=== PATIENT | male | born 1970 | race Caucasian/White ===

== ENCOUNTER 2020-11-11 14:59 | Outpatient (CLI) | payer OTHER, SELFPAY | END 2020-11-11 15:00 | disposition home or self-care (01) | LOC: ANHCOVIDVC 14:59 | PROVIDERS: PCP Family Medicine; Visit Provider Family Medicine | DX: Z23 Encounter for immunization (principal) | CPT/HCPCS: 0001A; 91300 ==

== ENCOUNTER 2020-12-02 14:59 | Outpatient (CLI) | payer OTHER, SELFPAY | END 2020-12-02 15:00 | disposition home or self-care (01) | LOC: ANHCOVIDVC 14:59 | PROVIDERS: PCP Family Medicine; Visit Provider Family Medicine | DX: Z23 Encounter for immunization (principal) | CPT/HCPCS: 0002A; 91300 ==

== ENCOUNTER 2022-12-01 15:22 | Outpatient (CLI) | payer OTHER, SELFPAY ==
--- NOTE | 2022-12-01 15:30 | ECG_ITS ---
Measurements Intervals [place] Rate: 66 P: 28 IA: 178 QRS: -15 QRSD: 118 T: 28 QT: 386 QTc: 407 Interpretive Statements SINUS RHYTHM INTRAVENTRICULAR CONDUCTION DELAY DELAYED PRECORDIAL R/S TRANSITION BASELINE ARTIFACT- I, II, III, AVL, AVF BORDERLINE ECG NO PREVIOUS ECG AVAILABLE FOR COMPARISON Electronically Signed On 12-01-2022 15:46:11 CDT by Prakash Dumont D.O.
[2022-12-01 16:07] LABS: Anion Gap 7 mmol/L (8-16); Blood Urea Nitrogen 17 mg/dL (9-20); Calcium 9.5 mg/dL (8.4-10.2); Carbon Dioxide 34 mmol/L (22-30); Chloride 97 mmol/L (98-107); Estimated Glomerular Filt Rate > 60; Glucose 109 mg/dL (65-110); Potassium 3.9 mmol/L (3.4-5.0); Sodium 138 mmol/L (137-145)
== END 2022-12-01 15:23 | disposition home or self-care (01) ==
LOC: ANHSURGERY 15:26
PROVIDERS: Anesthesiology; PCP Family Medicine; Visit Provider Otolaryngology
DX: Z79.899 Other long term (current) drug therapy (principal); I10 Essential (primary) hypertension; Z01.818 Encounter for other preprocedural examination; I45.9 Conduction disorder, unspecified
CPT/HCPCS: 36415; 80048; 93005

== ENCOUNTER 2022-12-04 01:24 | Day surgery (SDC) | payer OTHER, SELFPAY ==
[2022-11-27 12:09] VITALS: BMI 31.1
--- NOTE | 2022-11-27 12:12 | PC.NURSE ---
Report to the Outpatient Waiting Room, entrance under the green pavilion located off [facility], at time 6:15 on date 12/04/22. Planned Procedure Time: 8:15. Time changes happen often and if your time is changed the preop area will call you the afternoon before. - You and your visitor will be asked to self-screen and do not enter if you have any COVID symptoms. - Only one visitor is requested with a max of two and NO children visitors are allowed at this time. - The patient visitor may be requested to leave or wait in car when not with patient due to distancing restrictions. - A mask is optional within the hospital at this time. Patients may have clear liquids (water, carbonated beverages, clear teas, apple juice) until 3 hours prior to surgery (5:15) with a maximum of 20 ounces. - No food from midnight until time of surgery Take the following medications with a SIP of water the morning of surgery: NONE DO NOT STOP ANY OF YOUR OTHER PRESCRIPTION MEDICATIONS PRIOR TO SURGERY EXCEPT THE FOLLOWING Medications to discontinue per physician: N/A Date to take last dose: N/A Please no make-up, nail afghan, hairspray, perfume, deodorant, or body powder the day of surgery. No jewelry (including any body piercings) or valuables the day of surgery, leave them at home. Please take a shower or bath the night before, or the morning of, surgery with an antibacterial soap. Wear comfortable, loose fitting clothing. - Jewelry must be removed prior to entering the operating room. Rings and piercings that are not removed may be cut off. - The hospital will not accept responsibility for valuables. - Please leave all valuables, including medications, at home the day of surgery. If you are going home after surgery, a licensed [employer] tank driver must drive you home. - NO public transportation without another adult if you receive anesthesia. - We recommend that an adult stay with you for 24 hours following discharge. - We also recommend that you do not drive, make important decision, drink alcoholic beverages, or take any drugs that were not prescribed by your health care provider for at least 24 hours after your discharge time. Follow any additional instructions given to you from your surgeon. If you or anyone in your household have experienced Covid symptoms in the past week, please notify your surgeon or the nurse liaison at the phone number below for possible testing. Telephone instructions given to PT - ABELINO KAISER and asked if any additional questions and then verbalized understanding. Patient advised to call surgeon office or pre surgery nurse liaison [phone] if any additional questions.
--- NOTE | 2022-12-03 08:51 | P.HP_ITS ---
H&P: HPI History of Present Illness Date/Time: 12/03/22 08:51 Chief Complaint: Left postauricular mass Narrative: planned surgical procedure Review of Systems 2 Review of Systems: All systems reviewed & are unremarkable except as noted in HPI and below [facility] Surgical History Surgical History H/O colonoscopy (~09/2018) H/O vasectomy Family History Family History Sibling Hypertension Patient's sister is in good health Patient's brother is in good health Father Hypertension Family history of elevated blood lipids Mother Family history of malignant neoplasm of ovary, Onset Age: 54 Social History Social History Social History: exercise mild Smoking status: Never smoker Alcohol intake: current Drinks per week: 5 Alcohol use details: socially Substance use: never Substance use type: does not use Lack of Transportation: No Lack of Food: Never True Current Housing: I Have Housing Concerned About Future Housing: No Difficulty Paying Gas/Electric Bills: No Difficulty Paying for Meds: No Currently Unemployed: No Education: Bachelor's Degree Difficulty w/ Childcare or Family Care: No Living arrangements: with family Gender identity (if verbalized by the patient): Male Spiritual care concerns: No Meds Home Medications and Allergies Home Medications Medication Instructions Recorded Confirmed Type atorvastatin 20 mg tablet See Rx Instructions .Route 02/17/22 11/27/22 Rx .COMPLEX #90 tabs lisinopril 20 See Rx Instructions .Route 06/18/22 11/27/22 Rx mg-hydrochlorothiazide 12.5 mg .COMPLEX #180 tabs tablet sildenafil (pulm.hypertension) 20 20 mg PO DAILY PRN sexual activity 08/19/22 11/27/22 Rx mg tablet #30 tabs Allergies Allergy/AdvReac Type Severity Reaction Status Date / Time No Known Allergies Allergy Verified 11/27/22 12:08 Exam Narrative: left postauricular mass Assessment and Plan Assessment and plan (1) Mass of postauricular area: Code(s): R22.0 - Localized swelling, mass and lump, head Status: Acute Assessment and Plan: plan excision left postauricular mass. LMA okjerman. Risks discussed including bleeding infection recurrence of mass need for further procedures need for drainage of any postoperative complications numbness in the area pain need to keep it dry for several weeks postoperative infection scar need to shave hair.
--- NOTE | 2022-12-03 09:42 | WPDANESEPPF ---
Anes - Initial Pre Proc Eval Procedure: Operation Date: 12/04/22 09:30 Proposed Procedures p Excision Left Postauricular Mass - Ollie Dacosta MD <Dami Bales MD - Last Filed: 12/07/22 06:49> Date/Time: 12/03/22 09:42 <Dami Bales MD - Last Filed: 12/07/22 06:49> Surgeon: Ollie Dacosta MD <Dami Bales MD - Last Filed: 12/07/22 06:49> Pre Op Diagnosis: Lt Post Auricular Mass <Dami Bales MD - Last Filed: 12/07/22 06:49> Patient Data Age: 52 Gender: M Height: 1.83 m Weight: 104.35 kg <Dami Bales MD - Last Filed: 12/07/22 06:49> Allergies Allergy/AdvReac Type Severity Reaction Status Date / Time No Known Allergies Allergy Verified 12/04/22 07:56 <Dami Bales MD - Last Filed: 12/07/22 06:49> Home Medications Medication Instructions Recorded Confirmed Type atorvastatin 20 mg tablet See Rx Instructions .Route 02/17/22 11/27/22 Rx .COMPLEX #90 tabs lisinopril 20 See Rx Instructions .Route 06/18/22 11/27/22 Rx mg-hydrochlorothiazide 12.5 mg .COMPLEX #180 tabs tablet sildenafil (pulm.hypertension) 20 20 mg PO DAILY PRN sexual activity 08/19/22 11/27/22 Rx mg tablet #30 tabs oxycodone 5 mg tablet 5 mg PO Q12H PRN pain #10 tabs 12/04/22 Rx <Dami Bales MD - Last Filed: 12/07/22 06:49> Patient hx anesthesia problems: none <Carlos Apple MD - Last Filed: 12/04/22 08:40> Family hx anesthesia problems: none <Carlos Apple MD - Last Filed: 12/04/22 08:40> Results Review: All pre-operative results and documents have been reviewed as part of the pre-operative evaluation. <Dami Bales MD - Last Filed: 12/07/22 06:49> PMFSH Past Medical History Medical History: Medical History (Updated 12/04/22 @ 10:59 by Ollie Dacosta MD) Erectile dysfunction Essential (primary) hypertension Mass of postauricular area Mixed hyperlipidemia Obesity <Dami Bales MD - Last Filed: 12/07/22 06:49> Surgical History Surgical History: Surgical History H/O colonoscopy (~09/2018) H/O vasectomy <Dami Bales MD - Last Filed: 12/07/22 06:49> Family History Family History: Family History Sibling Hypertension Patient's sister is in good health Patient's brother is in good health Father Hypertension Family history of elevated blood lipids Mother Family history of malignant neoplasm of ovary, Onset Age: 54 <Dami Bales MD - Last Filed: 12/07/22 06:49> Social History Social History: Social History Social History: exercise mild Smoking status: Never smoker Alcohol intake: current Drinks per week: 5 Alcohol use details: socially Substance use: never Substance use type: does not use Lack of Transportation: No Lack of Food: Never True Current Housing: I Have Housing Concerned About Future Housing: No Difficulty Paying Gas/Electric Bills: No Difficulty Paying for Meds: No Currently Unemployed: No Education: Bachelor's Degree Difficulty w/ Childcare or Family Care: No Living arrangements: with family Gender identity (if verbalized by the patient): Male Spiritual care concerns: No <Dami Bales MD - Last Filed: 12/07/22 06:49> Anes - Eval Final PreProcedure Day of Procedure 12/03/22 09:42 <Dami Bales MD - Last Filed: 12/07/22 06:49> Patient weight: obese <Dami Bales MD - Last Filed: 12/07/22 06:49> Heart: regular rate and rhythm <Dami Bales MD - Last Filed: 12/07/22 06:49> Lungs: clear to auscultation and normal air movement <Dami Bales MD - Last Filed: 12/07/22 06:49> Airway: Mallampati scale class II <Dami Bales MD - Last Filed: 12/07/22 06:49> Neurologica
--- NOTE | 2022-12-04 07:10 | WPDHPUPDATE1 ---
History and Physical Update Update Date/Time: 12/04/22 07:10 History and Physical has been reviewed, including an updated exam of the patient. There are NO changes in the patient's condition. Risks, benefits, and alternatives have been discussed and questions answered. Patient agrees to proceed with procedure.
[2022-12-04 08:04] VITALS: BP 142/85; PULSE 75; RESP 16; TEMP 36.7; O2SAT 100
[2022-12-04] MEDS: LACTATED RINGERS 1,000 ML 30 ML IV CONT ×2 (08:18→10:51)
[2022-12-04] MEDS: ceFAZolin 2 GM/D5W 50 ML 2 GM/50 ML BAG IVPB (09:30)
[2022-12-04] MEDS: LIDO 1%/EPINEPHRINE 1:100,000 50 ML VIAL 20 ML INFILTRATE (09:50)
[2022-12-04 10:55] VITALS: BP 135/83; PULSE 90; RESP 16; TEMP 36.6; O2SAT 100
[2022-12-04 11:10] VITALS: BP 124/79; PULSE 83; RESP 15; O2SAT 100
[2022-12-04 11:25] VITALS: BP 120/73; PULSE 84; RESP 14; O2SAT 96
[2022-12-04 11:42] VITALS: BP 131/70; PULSE 73; RESP 14
[2022-12-04 12:10] VITALS: BP 122/71; PULSE 78; RESP 14
--- NOTE | 2022-12-04 14:12 | W.PM.PROC2 ---
Procedure Note - Detailed Date of Procedure 12/04/22 Pre-op Diagnosis Lt Post Auricular Mass Post-op Diagnosis Same Procedure Performed Excision of left postauricular mass appeared to be lipoma. Was about 5 x 3 cm Surgeon Ollie Dacosta MD Anesthesia General Indications see above Findings about 5 x 3 cm Description of Procedure patient identified consent verified. Patient brought operating. Time-out performed. General anesthesia induced LMA secured. Patient prepped draped position 2nd time-out performed procedure confirmed. 1 cc 1% lidocaine 1 100,000 parts epinephrine injected over the left postauricular cyst. About a 3 cm incision that 3.5 cm incision made ellipsing some soft tissue out as this was a large subcutaneous mass. Fit this sharp scissors utilized to dissect around the mass any bleeding was controlled with bipolar electrocautery. Lipoma was removed about 5 x 3 cm. There was a small arterial bleeder which was bipolar. The procedure no further bleeding was noted. The wound was washed out with 500 mL of sterile normal saline. The deep layer was closed with 3 3-0 Vicryl interrupted sutures. Dermal layer 4-0 interrupted Vicryl suture. Skin glue applied. Pressure dressing applied. Patient tolerated the procedure well. No complications. I performed all dictated portions. Blood loss about 10 cc. Care the patient given Anesthesiology. Patient taken to PACU. Estimated Blood Loss 10 Drains No Packing No Pathology Yes Complications No immediate complications Condition Stable Disposition PACU [facility] Billing Surgery - Charge Forward: Surgery Billing
== END 2022-12-04 12:25 | disposition home or self-care (01) ==
PROVIDERS: PCP Family Medicine; Visit Provider Otolaryngology
PROC: (CPT 21012; principal; 2022-12-04 09:30)
DX: D17.0 Benign lipomatous neoplasm of skin and subcutaneous tissue of head, face and neck (principal); I10 Essential (primary) hypertension; E78.2 Mixed hyperlipidemia; E66.9 Obesity, unspecified; Z68.31 Body mass index [BMI] 31.0-31.9, adult
CPT/HCPCS: 21012; 36415; 80048; 88304; 93005; A9270; J0690; J1100; J2250; J2405; J2704; J3010; J7120

== ENCOUNTER 2023-04-21 09:08 | Outpatient (CLI) | payer OTHER, SELFPAY ==
--- NOTE | 2023-04-27 17:26 | WPDHOMESLEEP ---
Sleep Study - Home Unattended Date of Study: 04/21/23 Ordering Provider: Mike Nuno MD Interpreting Provider: Nannette Denson, DO Home Sleep Study Type: Watch MORRO Height: 1.83 m Weight: 105.687 kg Body Mass Index: 31.6 Neck Circumference (inches): 17.25 [place]: 7 Reason for Sleep Study Snoring Sleep History The patient is a 53-year-old male that had a sleep study ordered by his primary care physician for evaluation of sleep apnea. The patient denies awakening from sleep short of breath. The patient frequently snores and is frequently loud enough that others complain. He occasionally has trouble sleeping when he has a cold. He denies waking up gasping for air throughout the night. He denies having breathing problems at night observed by himself or others. He rarely sweats excessively at night. He denies having heart palpitations or irregular heartbeats during the night. He denies falling asleep during the day and while driving. He denies sleep paralysis and cataplexy. He denies having trouble at school or work due to sleepiness. He rarely experiences vivid dreamlike scenes upon awakening or falling asleep. He denies feeling afraid of going to sleep. He rarely has nightmares rarely remembers his dreams. He occasionally has thoughts racing through his mind. He rarely feels sad or depressed. He rarely has anxiety. He rarely has muscular tension. He rarely notices parts of his body jerk. He rarely kicks during the night. He denies having crawling and aching feelings in his legs but rarely has leg pain during the night. He denies grinding his teeth during sleep and denies awakening with morning jaw pain. He is rarely bothered by pain during the day and rarely awakened by pain during the night. He rarely wakes up feeling stiff morning. He rarely wakes up with sore or achy muscles. He occasionally wakes up with pain in the neck, spine and other joints. He goes to bed at 10:00 p.m. on weekdays and 11:00 p.m. on the weekends. It takes him 10-15 minutes to fall asleep. He wakes once throughout the night to urinate and is able fall back asleep within 5-10 minutes. He wakes up at 6:00 a.m. on weekdays and at 7:00 a.m. on the weekends. He typically gets 7-8 hours of sleep per night. He will stay in bed for 5 minutes after waking up in the morning. He currently lives with his . He denies consuming any caffeinated beverages within 2 hours of bedtime. He denies engaging in physical exercise before bedtime. He denies reading watching television before falling asleep. He does take naps in the afternoon or the evening and they are refreshing. He drinks 2 caffeinated sodas per day. He drinks 4-5 alcoholic beverages on the weekends. He denies tobacco and recreational drug use. COUNT INCLUDES THE [facility] Past Medical History Medical History Erectile dysfunction Essential (primary) hypertension Mass of postauricular area Mixed hyperlipidemia Obesity Surgical History Surgical History H/O colonoscopy (~09/2018) H/O vasectomy Family History Family History Sibling Hypertension Patient's sister is in good health Patient's brother is in good health Father Hypertension Family history of elevated blood lipids Mother Family history of malignant neoplasm of ovary, Onset Age: 54 Social History Social History Social History: exercise mild Smoking status: Never smoker Alcohol intake: current Drinks per week: 5 Alcohol use details: socially Substance use: never Substance use type: does not use Lack of Transportation: No Lack of Food: Never True Current Housing: I Have Housing Concerned About Future Housing: No Difficulty Paying Gas/Electric Bills: No Difficulty Paying
[2023-04-27 17:28] VITALS: BMI 31.6
== END 2023-04-27 09:40 | disposition home or self-care (01) ==
LOC: ANHCSM 09:09
PROVIDERS: PCP Family Medicine; Visit Provider Family Medicine
DX: G47.8 Other sleep disorders (principal); R06.83 Snoring; G47.33 Obstructive sleep apnea (adult) (pediatric)
CPT/HCPCS: 95800

== ENCOUNTER 2023-05-06 08:16 | Outpatient (CLI) | payer OTHER, SELFPAY ==
--- NOTE | ~2023-05-06 | SLEEP.INT_ITS ---
Titration Report Patient Name: MARIA T ALMEIDA Study Date: 05/06/2023 Referring Physician: Wendy Galo PA-C Indications for Polysomnography The patient is a 77 year-old Male who is 5' 11 and weighs 217.0 lbs. His BMI equals 30.4. The patien t's neck circumference is 16.5 inches. The [place] Sleepiness Scale score was 8. A full night PAP Titration t rial was performed to find the optimal pressure to resolve his central sleep apnea with Balaji-Rouse respirations. He h ad a WatchPAT home sleep test on 03/22/2023 that showed an overall AHI of 37, CARLYN of 21.8 and 23% of the study havin g Balaji-Rouse respirations. Sleep History Bishnu Almeida is a 77-year-old man who frequently snores occasionally loud enough that others compl ain about it. He occasionally has difficulty with heartburn or belching or coughing at night. He does not awaken f rom sleep feeling short of breath. He occasionally has trouble sleeping with a cold. [facility] He does not sweat excessively at night. He frequently notices his heart pounding or beating irregularly at night. He frequently falls asleep during the day, never involuntarily or while driving. He does not have loss of muscle tone with stro ng emotion. He does not have daytime difficulties due to excessive sleepiness. He does not feel paralyzed on waking or f alling asleep. He does not have vivid dreamlike scenes on waking or falling asleep. He does not feel afraid to go to [facility]. He rarely has nightmares. He rarely has dream recall. He rarely has racing thoughts. He rarely feels sad, depres sed, or anxious. He rarely has muscular tension. He rarely notices parts of his body jerking. He does not kick at night . He occasionally has crawling and aching feelings in his legs and leg pain during the night. He does not have morning jaw pain or grind his teeth during sleep. He rarely is bothered by pain during the day, rarely awakened by pain at night. He rarely wakes up feeling stiff in the morning with sore achy muscles. He occasionally wakes up with pain in the neck and spine. He has memory problems, sexual problems, fatigue, palpitations and he takes antacids regularly. Normal bedtime is 8:00 p.m. 10 taking 10 minutes fall asleep typically waking 1-2 times at night to dominik bond. He is able to return to sleep within 30 minutes. He wakes the morning by 6:00 a.m. He has the same schedule on we ekends. He estimates getting between 8-9 hours of sleep at night. He takes naps in the afternoon or evening. A short nap lasting 10-15 minutes may be refreshing. He is usually drowsy for 1 hour after waking. He feels better in t he morning compared to other times of day. Habits: Never smoked tobacco. Caffeine 2 servings per day. Alcohol: None. Recreational substance s: None. Medical History Abnormal fasting glucose Glucose 105 and hemoglobin A1c 5.9 on 06/17/2022. Anemia Atherosclerotic heart disease of [place] coronary artery without angina pectoris normal KEY for screening peripheral vascular disease 02/04/2023. Benign essential HTN BMI 32.0-32.9,adult BPH without obstruction/lower urinary tract symptoms Candidiasis Fatigue Gastro-esophageal reflux disease without esophagitis Male erectile dysfunction, unspecified Mixed hyperlipidemia Total cholesterol 199, triglycerides 126, HDL 44, LDL 108 on 06/17/2022. Obesity (BMI 30.0-34.9) Paroxysmal atrial fibrillation Polyp of colon Two polyps on colonoscopy 10/08/2021 with recheck in 5 years. Snoring Weakness Witnessed episode of apnea Medications carvedilol 12.5 mg tablet 12.5 mg PO Q12H finasteride 5 mg tablet 5 mg PO DAILY lisinopril 20 mg tablet 20 mg PO DAILY] nystatin 100,000 unit/gram topical cream 1 applic topical BID #15 grams clotrimazole-betamethasone 1 %-0.05 % topical cream (Lotrisone) 1 applic topical BID #45 grams me
== END 2023-05-07 07:20 | disposition home or self-care (01) ==
LOC: ANHCSM 08:17
PROVIDERS: PCP Family Medicine; Visit Provider Family Medicine
DX: G47.33 Obstructive sleep apnea (adult) (pediatric) (principal)
CPT/HCPCS: 95811

== ENCOUNTER 2024-07-17 08:26 | Outpatient (CLI) | payer OTHER, SELFPAY ==
--- NOTE | 2024-07-17 08:31 | ECG_ITS ---
Test Date: 2024-07-17 08:48:30 Measurements Intervals [place] Rate: 76 P: 19 ME: 171 QRS: -10 QRSD: 111 T: 27 QT: 365 QTc: 410 Interpretive Statements SINUS RHYTHM INTRAVENTRICULAR CONDUCTION DELAY DELAYED PRECORDIAL R/S TRANSITION BORDERLINE ST-T WAVE ABNORMALITY- INFERIOR LEADS BASELINE ARTIFACT- I, II, III, AVR, AVL, AVF BORDERLINE ECG No previous ECG available for comparison Electronically Signed On 07-17-2024 08:50:00 [employer] by Prakash Dumont D.O.
[2024-07-17 09:20] LABS: Anion Gap 7 mmol/L (4-12); Blood Urea Nitrogen 21 mg/dL (9-20); Calcium 9.5 mg/dL (8.4-10.2); Carbon Dioxide 29 mmol/L (22-30); Chloride 99 mmol/L (98-107); Estimated Glomerular Filt Rate > 60; Glucose 104 mg/dL (65-110); Sodium 135 mmol/L (137-145)
== END 2024-07-17 08:27 | disposition home or self-care (01) ==
PROVIDERS: Anesthesiology; PCP Family Medicine; Visit Provider Surgery
DX: Z01.818 Encounter for other preprocedural examination (principal); R94.31 Abnormal electrocardiogram [ECG] [EKG]; I10 Essential (primary) hypertension; K40.90 Unilateral inguinal hernia, without obstruction or gangrene, not specified as recurrent; K42.9 Umbilical hernia without obstruction or gangrene; Z79.899 Other long term (current) drug therapy
CPT/HCPCS: 36415; 80048; 86850; 86900; 86901; 93005

== ENCOUNTER 2024-07-21 04:26 | Day surgery (SDC) | payer OTHER, SELFPAY ==
[2024-07-14 10:10] VITALS: BMI 33.3
--- NOTE | 2024-07-14 10:11 | PC.NURSE ---
Report to the Outpatient Waiting Room, entrance under the green pavilion located off [facility], at time _0600_ on date _[id number]_. Planned Procedure Time: _0730_.? Time changes happen often and if your time is changed the preop area will call you the afternoon before. - You and your visitor will be asked to self-screen and do not enter if you have any COVID symptoms. Please call surgeon if you need to reschedule. - A mask is optional within the hospital at this time. Patients may have clear liquids (water, carbonated beverages, clear teas, apple juice) until 3 hours prior to surgery with a maximum of 20 ounces. - No food from midnight until time of surgery and no smoking Take only the following medications with a SIP of water on the morning of surgery: __None____ DO NOT STOP ANY OF YOUR OTHER PRESCRIPTION MEDICATIONS PRIOR TO SURGERY EXCEPT THE FOLLOWING Medications to discontinue per physician ___None____ Please no make-up, nail comoran, hairspray, perfume, deodorant, or body powder the day of surgery.? No jewelry (including any body piercings) or valuables the day of surgery, leave them at home.? Please take a shower or bath the night before, or the morning of, surgery with an antibacterial soap.? Wear comfortable, loose fitting clothing.? - Jewelry must be removed prior to entering the operating room.? Rings and piercings that are not removed may be cut off. - The hospital will not accept responsibility for valuables.? - Please leave all valuables, including medications, at home the day of surgery. If you are going home after surgery, a licensed local [employer] truck driver must drive you home.? - NO public transportation without another adult if you receive anesthesia. - We recommend that an adult stay with you for 24 hours following discharge. - We also recommend that you do not drive, make important decision, drink alcoholic beverages, or take any drugs that were not prescribed by your health care provider for at least 24 hours after your discharge time. Follow any additional instructions given to you from your surgeon. Telephone instructions given to __Tom__and asked if any additional questions and then verbalized understanding. Patient advised to call surgeon office or pre surgery nurse liaison [phone] if any additional questions.
[2024-07-21] VITALS (8 sets, daily range): BP systolic 127–153; BP diastolic 71–88; PULSE 70–95; RESP 12–18; TEMP 36.1–36.5; O2SAT 94–99
[2024-07-21] MEDS: ACETAMINOPHEN 500 MG TABLET 1000 MG PO (06:30)
[2024-07-21] MEDS: LACTATED RINGERS 1,000 ML 30 ML IV CONT ×2 (06:35→10:22)
[2024-07-21] MEDS: KETOROLAC 15 MG/ML VIAL (*BKC) IV PUSH ×2 (06:37→09:49)
--- NOTE | 2024-07-21 07:14 | PM.IMHP ---
H&P: HPI History of Present Illness Date/Time: 07/21/24 07:14 Chief Complaint: Umbilical hernia, [facility] Narrative: Lee is a 54 y/o male who presents to the office at the request of Dr. Nuno for evaluation of an umbilical hernia and right inguinal hernia. He denies any pain but does have occasional discomfort from both areas. Has known about the hernias for multiple years, denies increase in size. Review of Systems Review of Systems: The remainder of the review of systems to include constitutional, HEENT, cardiovascular, respiratory, GI, , integumentary, musculoskeletal, endocrine, immunologic, hematologic, psychiatric, and neurologic are all negative except for which is mentioned above in the HPI. [facility] Past Medical History Medical History Erectile dysfunction Essential (primary) hypertension Mass of postauricular area Mixed hyperlipidemia Obesity Surgical History Surgical History H/O colonoscopy (~09/2018) H/O vasectomy Family History Family History Sibling Hypertension Patient's sister is in good health Patient's brother is in good health Father Hypertension Family history of elevated blood lipids Mother Family history of malignant neoplasm of ovary, Onset Age: 54 Social History Social History Social History: exercise mild Smoking status: Never smoker Alcohol intake: current Drinks per week: 4 Alcohol use details: socially Substance use: never Substance use type: does not use Lack of Transportation: No Lack of Food: Never True Current Housing: I Have Housing Concerned About Future Housing: No Difficulty Paying Gas/Electric Bills: No Difficulty Paying for Meds: No Currently Unemployed: No Education: Bachelor's Degree Difficulty w/ Childcare or Family Care: No Living arrangements: with family Gender identity (if verbalized by the patient): Male Spiritual care concerns: No Meds Home Medications and Allergies Home Medications Medication Instructions Recorded Confirmed Type CPAP #1 ea 05/26/23 07/14/24 Rx lisinopril 20 See Rx Instructions .Route 11/10/23 07/21/24 Rx mg-hydrochlorothiazide 12.5 mg .COMPLEX #180 tabs tablet atorvastatin 20 mg tablet See Rx Instructions .Route 02/14/24 07/21/24 Rx .COMPLEX #90 tabs sildenafil (pulm.hypertension) 20 20 mg PO DAILY PRN sexual activity 05/29/24 07/21/24 Rx mg tablet #30 tabs Allergies Allergy/AdvReac Type Severity Reaction Status Date / Time No Known Allergies Allergy Verified 07/21/24 06:17 Vital Signs Vital Signs - 24 hr 07/21/24 06:20 Temperature 36.5 C Pulse Rate 70 Respiratory Rate 18 Blood Pressure 127/78 Pulse Oximetry 97 Oxygen Delivery Room Air Exam Const: General: comfortable and no acute distress HENMT: Ears: TM's normal bilaterally Face/Nose/Sinus: Normal nares present Mouth: Yes moist mucous membranes Eyes: General: appearance normal, both eyes and all related structures Sclera: sclerae normal Pupils: Equal, round and reactive pupils present EOM: EOMs intact bilaterally Neck: Neck: supple and no JVD Resp: Effort & Inspection: normal respiratory effort Auscultation: clear to auscultation bilaterally Cardio: Rate: regular rate Rhythm: regular rhythm GI: Other: Inspection: normal to inspection Auscultation: normal bowel sounds Palpation/Percussion: Yes non-tender, Yes no guarding and No Rebound tenderness present Other: 1cm umbilical hernia that is reducible. : Other: moderate sized right inguinal hernia that is reducible, no testicular masses. No left inguinal hernia. Skin: General skin exam: normal color and no rashes or lesions noted Neuro: General: gait normal Speech: normal speech Motor exam (neuro): 5/5 motor strength present throughout Sensory Exam: normal sensation Extrem: General: normal to inspection Psych: Mental Status: mental status grossly normal Affect: normal affect Assessment and Plan Assessment and plan (1) Umbilical hernia without obstruction and without gangrene: Code(s): K42.9 - Umbilical hernia without obstruction or gangrene Status: Acute Assessment and Plan: Patient has a small umbilical hernia that causes discomfort and a moderate sized right inguinal hernia. I have recommended repairing these and patient is in agreement. I have recommended robotic assisted laparoscopic right inguinal hernia repair with mesh, Open umbilical hernia repair without mesh to be done under general anesthesia as an outpatient. Procedure risks, benefits, indications, and expected outcomes were discussed with the patient in detail. All questions were answered. Patient would like to proceed. Follow-up 2 weeks postoperatively. (2) Inguinal hernia: Code(s): K40.90 - Unilateral inguinal hernia, without obstruction or gangrene, not specified as recurrent Status: Acute
--- NOTE | 2024-07-21 07:24 | P.PNAN_ITS ---
Anes - Initial Pre Proc Eval Procedure: Operation Date: 07/21/24 07:30 Proposed Procedures p Robotic Assisted Laparoscopic Right Inguinal Hernia Repair with Mesh - Medardo Garcia MD s Open Umbilical Hernia Repair with Mesh - Medardo Garcia MD Date/Time: 07/21/24 07:24 Surgeon: Medardo Garcia MD Pre Op Diagnosis: reducible rt ing hernia,reducible umbilical hernia Patient Data Age: 54 Gender: M Height: 1.83 m Weight: 114.5 kg Last Vital Signs Temp 97.7 F 07/21/24 06:20 Pulse 70 07/21/24 06:20 Resp 18 07/21/24 06:20 BP 127/78 07/21/24 06:20 Pulse Ox 97 07/21/24 06:20 O2 Del Method Room Air 07/21/24 06:20 Allergies Allergy/AdvReac Type Severity Reaction Status Date / Time No Known Allergies Allergy Verified 07/21/24 06:17 Home Medications Medication Instructions Recorded Confirmed Type CPAP #1 ea 05/26/23 07/14/24 Rx lisinopril 20 See Rx Instructions .Route 11/10/23 07/21/24 Rx mg-hydrochlorothiazide 12.5 mg .COMPLEX #180 tabs tablet atorvastatin 20 mg tablet See Rx Instructions .Route 02/14/24 07/21/24 Rx .COMPLEX #90 tabs sildenafil (pulm.hypertension) 20 20 mg PO DAILY PRN sexual activity 05/29/24 07/21/24 Rx mg tablet #30 tabs Patient hx anesthesia problems: none Family hx anesthesia problems: none Results Review: All pre-operative results and documents have been reviewed as part of the pre- operative evaluation. [facility] Past Medical History Medical History Erectile dysfunction Essential (primary) hypertension Mass of postauricular area Mixed hyperlipidemia Obesity Surgical History Surgical History H/O colonoscopy (~09/2018) H/O vasectomy Family History Family History Sibling Hypertension Patient's sister is in good health Patient's brother is in good health Father Hypertension Family history of elevated blood lipids Mother Family history of malignant neoplasm of ovary, Onset Age: 54 Social History Social History Social History: exercise mild Smoking status: Never smoker Alcohol intake: current Drinks per week: 4 Alcohol use details: socially Substance use: never Substance use type: does not use Lack of Transportation: No Lack of Food: Never True Current Housing: I Have Housing Concerned About Future Housing: No Difficulty Paying Gas/Electric Bills: No Difficulty Paying for Meds: No Currently Unemployed: No Education: Bachelor's Degree Difficulty w/ Childcare or Family Care: No Living arrangements: with family Gender identity (if verbalized by the patient): Male Spiritual care concerns: No Anes - Eval Final PreProcedure Day of Procedure 07/21/24 07:24 Patient weight: obese Heart: regular rate and rhythm Lungs: clear to auscultation Airway: Mallampati scale class II Neurological: alert and oriented Last oral intake: >/= 8 hours ASA classification: III Emergent: no Anesthetic plan: proceed Anesthesia type and monitoring: general ETT and standard monitoring Results Review: All pre-operative results and documents have been reviewed as part of the pre- operative evaluation. Informed Consent: The patient's anesthetic plan and its attendant risks and benefits were discus sed with the patient/family/POA. Questions were solicited and answers provided to the satisfaction of the patient/family/POA.
--- NOTE | 2024-07-21 07:33 | WPDHPUPDATE1 ---
History and Physical Update Update Date/Time: 07/21/24 07:33 History and Physical has been reviewed, including an updated exam of the patient. There are NO changes in the patient's condition. Risks, benefits, and alternatives have been discussed and questions answered. Patient agrees to proceed with procedure.
[2024-07-21] MEDS: ceFAZolin 2 GM/D5W 50 ML 2 GM/50 ML BAG IVPB (07:39)
[2024-07-21] MEDS: BUPivacaine HCL 0.5% PF 30 ML VIAL INFILTRATE (08:33)
[2024-07-21] MEDS: LIDO 1%/EPINEPHRINE 1:100,000 20 ML VIAL 30 ML INFILTRATE (08:33)
--- NOTE | 2024-07-21 10:23 | W.PM.PROC2 ---
Procedure Note - Detailed Date of Procedure 07/21/24 Pre-op Diagnosis Reducible rt ing hernia,Reducible umbilical hernia Post-op Diagnosis Same Procedure Performed Robotic assisted laparoscopic right inguinal hernia repair a Bard 3D mid weight mesh. Open umbilical hernia repair without mesh. (fascial defect 2cm) Surgeon Medardo Garcia MD Scale And Skip Car Operator Candido Tena DISTILLING DEPARTMENT SUPERVISOR Anesthesia General Indications Patient is a 54-year-old gentleman who presented with planes of pain and bulging in his right groin region. On examination she had a reducible right inguinal hernia. No evidence of left inguinal hernia. He also had a reducible umbilical hernia. He presents now for a robotic assisted laparoscopic right inguinal hernia repair with mesh. Will also fix the umbilical hernia in open fashion without mesh at the and of the procedure. Findings The patient had a direct right inguinal hernia defect. Moderate in size. Preperitoneal fat was noted the defect. No indirect component or femoral component was seen. The umbilical hernia defect was approximate 2cm in diameter. There was only preperitoneal fat and a small amount omentum within the hernia sac. Description of Procedure After informed consent was obtained patient brought to the operating room was placed supine position and general endotracheal anesthesia was administered. The abdomen and bilateral groin regions were then prepped draped usual sterile fashion. A time-out was then performed correctly identifying the patient as well as the procedure to be performed. Site marking was verified and it was verified he was given perioperative IV antibiotics. I then entered the abdomen left upper quadrant utilizing a 5mm Optiview port. Once inside the abdomen insufflated to adequate pneumoperitoneum of 15mmHg of CO2. There was a very small amount omentum adherent to the hernia sac at the umbilicus. I placed a 8mm left lateral abdominal wall robotic trocar port and through this port I introduced a laparoscopic instrument and bluntly pulled down the omental adhesion. There was no bleeding from the take down of the adhesive band. I then placed a 8mm umbilical trocar port through the fascial defect and another 8mm trocar port in the right lateral abdominal wall. I then switched out the 5mm left upper trocar port for a 10mm bedside operations administrative assistant trocar port. The Webbyn[employer] robot was then brought to the patient's right side of the bed and then docked so that the arms were then attached to the robotic ports. Robotic instruments were then advanced into the abdomen under direct visualization. I then scrubbed out the procedure sent down the robotic console to perform the dissection. I then started a preperitoneal flap starting at anterior medial to the right anterior superior iliac spine extended across the lower abdominal wall and till I reached the right side the medial umbilical ligament. I then divided the right side of the median umbilical ligament and continued dissection is avascular preperitoneal plane distally. Identified the right pubic tubercle and dissected down into this area until I am dissected into the space of Retzius. Medially I dissected over until I was to the left of the pubic symphysis. I then continued my dissection of the peritoneal flap and identified the internal ring and the cord structures. The peritoneum was dissected off of the cord structures and identified a cord lipoma. Cord lipoma was dissected free of the cord structures and resected and removed from the abdomen. It was not sent to pathology. I then continued my dissection skeletonizing the vas deferens and testicular vessels. The peritoneum was dissected proximally up onto the psoas muscle. I dissected down and identified the femoral space and there was no femoral hernia. There was preperitoneal fat within the direct inguinal hernia sac which was moderate in size. The preperitoneal fat was dissected out of the direct defect. When I thought I had enough of the peritoneum dissected back onto the psoas muscle that I could place the mesh without rolling up the proximal side of the mesh I then proceeded to choose a Bard 3D mid weight mesh configured for the right groin region and placed into the abdomen through the bedside operations administrative assistant port site. The mesh was then extra-large mesh measuring [id number]. I had previously closed the direct defect imbricated the pseudo sac utilizing a running 2-0 absorbable V lock suture. The mesh covered this direct defect as well as the femoral space and the indirect space and internal ring with wide overlap. I then secured the mesh tissues around the pubic tubercle utilizing 2-0 Vicryl sutures. Laterally the mesh was secured to the muscle anterior medial to the right anterior superior iliac spine with a 2-0 Vicryl suture. Another suture was placed to approximate the mesh to the muscle just above the closed direct defect. The mesh had no tension on it. I then pulled up the peritoneal flap and the proximals the mesh did not roll up with the flap. Hemostasis the space was assured. I then proceeded to close the peritoneal flap utilizing a running 2-0 absorbable V lock suture. Once this was done I then had the robotic instruments removed from the abdomen and the robot was undocked from the patient's bedside. I then scrubbed back into the procedure and then removed all the trocar ports under direct visualization all port sites appeared to be hemostatic. I then allowed the abdomen decompressed. I then closed the 10mm left upper quadrant trocar port fascial defect utilizing 0 Vicryl suture. I irrigated all the port sites sterile saline solution. At this point I then proceeded to close the reducible umbilical hernia defect an open fashion. The umbilical incision which was initially transverse was extended into a half rosario configuration and the upper part of the umbilical fold. Dissection was carried down through the dermis to the scalpel and then electrocautery was used to separate the surrounding subcutaneous tissues from the hernia sac. I then encircled the umbilical stalk and hernia sac utilizing blunt dissection with a Rosa clamp. I then disconnected the overlying dermis from the hernia sac utilizing electrocautery. I then resected the hernia sac and we waited edges of the fascia at the umbilical defect. This is the electrocautery. The hernia sac was sent to pathology. The defect measured approximately 2cm in diameter. At this point I then placed 6 separate 0 Ethibond sutures getting good bites of fascia of at least 1cm on either side and closing the defect primarily. The defect closed very nicely without any tension. I then tacked down the umbilical stalk to the underlying fascia utilizing a 3-0 Vicryl suture to recreate an inverted umbilicus. This is then followed by interrupted 2-0 Vicryl sutures in the subcutaneous tissues close the space. Interrupted 3-0 Vicryl sutures were then placed in a deep dermal layer. I then resected a small portion of read but did not umbilical skin with a scalpel and then closed the skin edges utilizing a running subcuticular 4-0 Monocryl suture. I then proceeded to close all the other port site incisions utilizing a running subcuticular 4-0 Monocryl suture as well. The incisions were then cleaned the skin glue was applied all the incisions. A scrotal support was placed on the patient. The patient tolerated the procedure well no complications. All sponges, needles, and instrument counts were correct at the end procedure. EBL was _25__cc. The patient was awakened and taken to recovery in stable and satisfactory condition. Implants Extra-large 3D mid weight mesh oriented for right groin measuring 17 x 12 cm. Estimated Blood Loss 25 Drains No Packing No Pathology Yes (Umbilical hernia sac sent to pathology) Complications No immediate complications Condition Stable Disposition PACU [facility] Billing Surgery - Charge Forward: Surgery Billing
[2024-07-21] MEDS: oxyCODONE HCL (*CRX) 5 MG TAB IR PO (11:31)
== END 2024-07-21 12:22 | disposition home or self-care (01) ==
PROVIDERS: PCP Family Medicine; Visit Provider Surgery
PROC: 8E0Y4CZ Robotic Assisted Procedure of Lower Extremity, Percutaneous Endoscopic Approach (ICD-10-PCS; CPT 49650; principal; 2024-07-21 07:30)
PROC: (CPT 49650; 2024-07-21 07:30)
DX: K40.90 Unilateral inguinal hernia, without obstruction or gangrene, not specified as recurrent (principal); K42.9 Umbilical hernia without obstruction or gangrene; I10 Essential (primary) hypertension; E78.2 Mixed hyperlipidemia; E66.9 Obesity, unspecified; Z68.34 Body mass index [BMI] 34.0-34.9, adult
CPT/HCPCS: 49650; S2900; 88302; A9270; C1781; J0690; J1100; J1885; J2003; J2004; J2250; J2405; J2704; J3010; J7120